=== PATIENT | male | born 1945 ===

== ENCOUNTER 2017-02-17 20:28 | Emergency (ER) | payer MEDICARE, OTHER ==
[2017-02-17 21:06] VITALS: BP 155/76; PULSE 71; RESP 16; TEMP 98.3; O2SAT 100
--- NOTE | 2017-02-17 21:46 | ED PDOC ---
Lower Extremity Pain/Injury Time Seen by Provider: 02/17/17 21:11 Chief Complaint (Nursing): Lower Extremity Problem/Injury Chief Complaint (Provider): Right Foot pain History Per: Patient History/Exam Limitations: no limitations Current Symptoms Are (Timing): Still Present Additional Complaint(s): Je Pham, a 71 year old male patient, presents to the ED with right foot pain. The patient states that for the past year he has been having intermittent right foot pain, but over the past 3 days it has worsened. He states that he was initially seen by his PMD Dr. Galvan and was instructed to get a right foot xray, which he did not get. The patient says he has not taken any medicines to relieve the pain. Denies trauma, fever, rash, calf pain. Past Medical History Reviewed: Historical Data, Nursing Documentation, Vital Signs Vital Signs: Last Vital Signs Temp 98.3 F 02/17/17 21:03 Pulse 71 02/17/17 21:03 Resp 16 02/17/17 21:03 BP 155/76 H 02/17/17 21:03 Pulse Ox 100 02/17/17 21:03 - Medical History PMH: HTN Other PMH: ulcers - Surgical History Surgical History: No Surg Hx - Family History Family History: States: No Known Family Hx - Home Medications Home Medications: Ambulatory Orders Medication Instructions Recorded Cephalexin [cephalexin] 500 mg PO BID #14 cap 09/02/16 Meloxicam [Mobic] 7.5 mg PO DAILY PRN #30 tab 02/17/17 - Allergies Allergies/Adverse Reactions: Allergies Allergy/AdvReac Type Severity Reaction Status Date / Time No Known Allergies Allergy Verified 09/02/16 19:10 Review of Systems Constitutional: Negative for: Fever Musculoskeletal: Positive for: Foot Pain (Right foot pain) Skin: Negative for: Rash Physical Exam - Reviewed Nursing Documentation Reviewed: Yes Vital Signs Reviewed: Yes - Physical Exam Appears: Positive for: Well, Non-toxic, No Acute Distress Head Exam: Positive for: ATRAUMATIC, NORMAL INSPECTION, NORMOCEPHALIC Skin: Positive for: Normal Color, Warm. Negative for: Rash Pulses-Dorsalis Pedis (R): 2+ Back: Positive for: Normal Inspection. Negative for: L CVA Tenderness, R CVA Tenderness Extremity: Positive for: Normal ROM (of RLE), Capillary Refill (Capillary refills less than 2 seconds.), Other (R foot: tenderness, swelling, deformity, warmth, erythema or lesions; no skin integrity; no break in the skin). Negative for: Tenderness, Calf Tenderness (b/l), Deformity, Swelling Neurologic/Psych: Positive for: Alert, Oriented - ECG O2 Sat by Pulse Oximetry: 100 (RA) Pulse Ox Interpretation: Normal - Radiology X-Ray: Interpreted by Me (R foot x-ray) X-Ray Interpretation: Other (heel spur noted) Medical Decision Making Medical Decision Makin:11 Initial Impression: 71 year old male presenting with right foot pain. Initial Plan: * Toradol 15mg IM * RAD Right foot Scribe Attestation Documented by Nadia Alonzo acting as a scribe for Flavio Arredondo PA-C. Provider Attestation All medical record entries made by the Scribe were at my direction and personally dictated by me. I have reviewed the chart and agree that the record accurately reflects my personal performance of the history, physical exam, medical decision making, and the department course for this patient. I have also personally directed, reviewed, and agree with the discharge instructions and disposition. Disposition - Clinical Impression Clinical Impression: Heel spur - Patient ED Disposition Is Patient to be Admitted: No - Disposition Referrals: Bettina Rodriguez DPM [Staff Provider] - [facility]iatry Clinic [Outside] Disposition: Routine/Home Disposition Time: 22:04 Condition: STABLE Prescriptions: Meloxicam [Mobic] 7.5 mg PO DAILY PRN #30 tab PRN Reason: Pain, Mild (1-3) Instructions: Heel Spur (ED) Print Language: HUNGARIAN
--- NOTE | 2017-02-18 13:56 | RAD ---
PROCEDURE: Right foot dated 02/17/2017 Three standard views right foot performed. HISTORY: heel pain COMPARISON: None. FINDINGS: BONES: No evidence of acute displaced fracture nor dislocation. The osseous structures appear intact. On. Note made of what appears represent fused accessory "Extra Navicular" JOINTS: Mild hallux valgus deformity with slight prominence of the head of the 1st metatarsal and minimal DJD 1st MTP joint. . There is also mild prominence of the overlying medial soft tissues. Small plantar and posterior calcaneal enthesophytes are present. SOFT TISSUES: As above OTHER FINDINGS: None. IMPRESSION: No acute fractures. 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 See above discussion for additional findings and details.
== END 2017-02-17 22:22 | disposition home or self-care (01) ==
LOC: H.ER 20:28
DX: M79.671 Pain in right foot (principal); I10 Essential (primary) hypertension
CPT/HCPCS: 73630; 96372; 99283; J1885

== ENCOUNTER 2017-05-19 15:54 | Emergency (ER) | payer OTHER, MEDICARE ==
[2017-05-19 16:06] VITALS: BP 146/64; PULSE 84; RESP 18; TEMP 97.6; O2SAT 99
--- NOTE | 2017-05-19 16:40 | ED PDOC ---
Upper Extremity Pain/Injury Time Seen by Provider: 05/19/17 16:07 Chief Complaint (Nursing): Finger,Hand,&Wrist Chief Complaint (Provider): Numbness and tingling to left finger History Per: Patient History/Exam Limitations: no limitations Onset/Duration Of Symptoms: Days (x 8 months) Current Symptoms Are (Timing): Still Present Additional Complaint(s): Je is a 72 y/o male who presents to the ED for complaints of numbness and tingling to the left ring finger and partial middle finger. States he had a cut there on 09/02/16 which he sustained at work. Symptoms have been presents since then. Patient was told to return if symptoms persisted, which prompted todays visit. PMD: Héctor Sewell Past Medical History Reviewed: Historical Data, Nursing Documentation, Vital Signs Vital Signs: Last Vital Signs Temp 97.6 F 05/19/17 16:03 Pulse 84 05/19/17 16:03 Resp 18 05/19/17 16:03 BP 146/64 05/19/17 16:03 Pulse Ox 99 05/19/17 16:03 - Medical History PMH: HTN - Surgical History Surgical History: No Surg Hx - Family History Family History: States: Unknown Family Hx - Social History Current smoker - smoking cessation education provided: No Alcohol: None Drugs: Denies - Home Medications Home Medications: Ambulatory Orders Medication Instructions Recorded Cephalexin [cephalexin] 500 mg PO BID #14 cap 09/02/16 Meloxicam [Mobic] 7.5 mg PO DAILY PRN #30 tab 02/17/17 - Allergies Allergies/Adverse Reactions: Allergies Allergy/AdvReac Type Severity Reaction Status Date / Time No Known Allergies Allergy Verified 09/02/16 19:10 Review of Systems ROS Statement: Except As Marked, All Systems Reviewed And Found Negative Neurological: Positive for: Numbness (and Tingling, to the left ring finger and partially to middle finger) Physical Exam - Reviewed Nursing Documentation Reviewed: Yes Vital Signs Reviewed: Yes - Physical Exam Appears: Positive for: Well, Non-toxic, No Acute Distress Head Exam: Positive for: ATRAUMATIC, NORMAL INSPECTION, NORMOCEPHALIC Skin: Positive for: Normal Color, Warm, Dry Eye Exam: Positive for: EOMI, Normal appearance, PERRL ENT: Positive for: Normal ENT Inspection Neck: Positive for: Normal Extremity: Positive for: Capillary Refill (< 2 sec), Other (Healed incision at the left lower wrist. Sensation intact. Press Bucker strength normal.) Neurologic/Psych: Positive for: Alert, Oriented. Negative for: Motor/Sensory Deficits - ECG O2 Sat by Pulse Oximetry: 99 (RA) Pulse Ox Interpretation: Normal Medical Decision Making Medical Decision Making: Time: 16:07 --Patient requesting X-Ray. Discussed that he needs an MRI and not an X-Ray. --Advised patient to follow up with Orthopedics or PMD for MRI Time: 16:26 Clinical Impression: Paresthesia Upon provider evaluation patient is medically stable, and requires no further treatment in the ED at this time. Patient will be discharged home. Counseling was provided and all questions were answered regarding diagnosis and need for follow up with Orthopedist or PMD. There is agreement to discharge plan. Return if symptoms persist or worsen. Scribe Attestation: Documented by Mary Kate Tapia, acting as a scribe for Jaimie Stein PA-C Provider Scribe Attestation: All medical record entries made by the Scribe were at my direction and personally dictated by me. I have reviewed the chart and agree that the record accurately reflects my personal performance of the history, physical exam, medical decision making, and the department course for this patient. I have also personally directed, reviewed, and agree with the discharge instructions and disposition. Disposition - Clinical Impression Clinical Impression: Paresthesia - Patient ED Disposition Is Patient to be Admitted: No Counseled Patient/Family Regarding: Diagnosis, Need For Followup - Disposition Referrals: Ilya Rizo III, MD [Staff Provider] - Disposition Time: 16:26 Condition: STABLE Instructions: Paresthesia (ED)
== END 2017-05-19 16:30 | disposition home or self-care (01) ==
LOC: H.ER 15:54
DX: R20.9 Unspecified disturbances of skin sensation (principal)

== ENCOUNTER 2018-01-28 17:01 | Emergency (ER) | payer MEDICARE, OTHER ==
[2018-01-28 17:40] VITALS: BP 157/70; PULSE 85; RESP 18; TEMP 98; O2SAT 99
--- NOTE | 2018-01-28 21:19 | ED PDOC ---
HPI: Back Time Seen by Provider: 01/28/18 18:30 Chief Complaint (Nursing): Back Pain Chief Complaint (Provider): Right flank pain x weeks History Per: Patient History/Exam Limitations: no limitations Onset/Duration Of Symptoms: Days Current Symptoms Are (Timing): Still Present Additional Complaint(s): 72 yo male presents with right rib pain after an injury a few months ago. PT states the last 2 days since his allergies have been acting up and been sneezing the pain is worse Past Medical History Vital Signs: Last Vital Signs Temp 98.0 F 01/28/18 17:37 Pulse 85 01/28/18 17:37 Resp 18 01/28/18 17:37 BP 157/70 H 01/28/18 17:37 Pulse Ox 99 01/28/18 17:37 - Medical History PMH: HTN - Family History Family History: States: Unknown Family Hx - Home Medications Home Medications: Ambulatory Orders Medication Instructions Recorded Cephalexin [cephalexin] 500 mg PO BID #14 cap 09/02/16 Meloxicam [Mobic] 7.5 mg PO DAILY PRN #30 tab 02/17/17 traMADol [Ultram] 50 mg PO Q6H PRN #10 tab 01/28/18 - Allergies Allergies/Adverse Reactions: Allergies Allergy/AdvReac Type Severity Reaction Status Date / Time No Known Allergies Allergy Verified 09/02/16 19:10 - ECG O2 Sat by Pulse Oximetry: 99 Disposition - Clinical Impression Clinical Impression: Rib contusion - Patient ED Disposition Is Patient to be Admitted: No Counseled Patient/Family Regarding: Diagnosis, Need For Followup, Rx Given - Disposition Disposition: Routine/Home Disposition Time: 21:18 Condition: STABLE Prescriptions: traMADol [Ultram] 50 mg PO Q6H PRN #10 tab PRN Reason: Pain Instructions: Contusion (DC)
--- NOTE | 2018-01-29 08:51 | RAD ---
PROCEDURE: Radiographs of the Chest and Right Ribs. HISTORY: right rib pain s/p fall COMPARISON: Chest radiograph dated 05/03/2014. TECHNIQUE: Frontal radiograph of the chest and multiple oblique radiographs of the right ribs were obtained. FINDINGS: RIGHT RIBS: No fracture or focal lesion visualized. LUNGS: Clear. PLEURA: No pneumothorax or pleural fluid. CARDIOVASCULAR: Atherosclerotic aortic calcifications. Cardiomediastinal silhouette within normal limits. OTHER FINDINGS: Remainder of osseous structures unchanged. IMPRESSION: Unremarkable radiographs of the chest and right ribs. No right rib fracture.
== END 2018-01-28 21:26 | disposition home or self-care (01) ==
LOC: H.ER 17:01
DX: S20.219A Contusion of unspecified front wall of thorax, initial encounter (principal); Y92.89 Other specified places as the place of occurrence of the external cause; I10 Essential (primary) hypertension

== ENCOUNTER 2018-11-10 15:29 | Inpatient (IN) | payer MEDICARE ==
--- NOTE | 2018-11-10 16:27 | ED PDOC ---
HPI: Chest Pain History Per: Patient Additional Complaint(s): Pt is a 73 y/o male with hx of HTN presents to ED with acute chest pain. Pt states he went to see his PMD this morning and was told his heart was enlarged and he was started on new medication. 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 He localizes chest pain to substernal, pressure like, non radiating, 8/10 in intensity, that slightly improved with rest. While he was in the ED waiting room, he also experienced nausea and vomiting. He reports that this morning when he woke up, he experienced a similar pain this morning when he woke up for a few minutes. He denies lightheadedness, palpitations, abdominal pain, LE edema, orthopnea, cough, fever/chill PMD: Dr. Alex Mehta PMHX: HTN. Denies hx of Cardiac disease, States he had stress test many years ago SurgHx: Denies NKDA Social: Denies every smoking, alcohol, or illicit drug use Daughter: Roxi Pham <Karina Seth - Last Filed: 11/10/18 19:39> <Saw Maldonado - Last Filed: 11/15/18 14:22> Time Seen by Provider: 11/10/18 15:53 Chief Complaint (Nursing): Chest Pain Supervising Attending Note - Supervising Attending Note The Documented history was done by the: Physician Petrographer The documented physical exam was done by the: Physician Petrographer The documented procedures were done by the: Physician Petrographer - Attestation: I have personally seen and examined this patient.: Yes I have fully participated in the care of the patient.: Yes I have reviewed all pertinent clinical information: Yes <Saw Maldonado Y - Last Filed: 11/15/18 14:22> Past Medical History Reviewed: Historical Data, Nursing Documentation, Vital Signs Vital Signs: Last Vital Signs Temp 98.4 F 11/10/18 15:45 Pulse 84 11/10/18 15:45 Resp 18 11/10/18 15:45 BP 157/81 H 11/10/18 15:45 Pulse Ox 96 11/10/18 15:45 - Medical History PMH: HTN - Surgical History Surgical History: No Surg Hx - Family History Family History: States: Unknown Family Hx - Living Arrangements Living Arrangements: With Family - Social History Current smoker - smoking cessation education provided: No <Karina Seth - Last Filed: 11/10/18 19:39> Vital Signs: Last Vital Signs Temp 98.4 F 11/10/18 15:45 Pulse 84 11/10/18 15:45 Resp 18 11/10/18 15:45 BP 157/81 H 11/10/18 15:45 Pulse Ox 96 11/10/18 17:30 <Saw Maldonado - Last Filed: 11/15/18 14:22> - Home Medications Home Medications: Ambulatory Orders Medication Instructions Recorded RX: Ergocalciferol (Vitamin D2) 50,000 unit PO TH 11/10/18 [Vitamin D2] RX: Icosapent Ethyl [Vascepa] 2 gm PO BID 11/10/18 RX: Levothyroxine [Synthroid] 150 mcg PO DAILY 11/10/18 RX: Losartan/Hydrochlorothiazide 1 tab PO DAILY 11/10/18 [Hyzaar 100-12.5 Tablet] RX: Rosuvastatin Calcium [Crestor] 20 mg PO HS 11/10/18 RX: Sitagliptin Phos/Metformin HCl 1 tab PO BID 11/10/18 [Janumet 50-1,000 mg Tablet] - Allergies Allergies/Adverse Reactions: Allergies Allergy/AdvReac Type Severity Reaction Status Date / Time No Known Allergies Allergy Verified 09/02/16 19:10 Wells Criteria for PE - Wells Criteria for Pulmonary Embolism Clinical Signs and Symptoms of DVT: No P.E is #1 Diagnosis, or Equally Likely: No Heart Rate >100: No Immobilization at least 3 days;Surgery previous 4 weeks: No Previous, objectively diagnosed PE or DVT: No Hemoptysis: No Malignancy w/treatment within 6 months, or palliative: No Total Score: 0 <Karina Seth - Last Filed: 11/10/18 19:39> Review of Systems Constitutional: Negative for: Fever, Chills Cardiovascular: Positive for: Chest Pain. Negative for: Palpitations, Orthopnea Respiratory: Negative for: Cough, Shortness of Breath Gastrointestinal: Positive for: Nausea, Vomiting. Negative for: Abdominal Pain Genitourinary Male: Negative for: Dysuria Neurological: Negative for: Weakness, Numbness <Karina Seth - Last Filed: 11/10/18 19:39> Physical Exam - Physical Exam Appears: Positive for: No Acute Distress Skin: Positive for: Normal Color. Negative for: Diaphoresis, Pallor Eye Exam: Positive for: Normal appearance Neck: Positive for: Normal Cardiovascular/Chest: Positive for: Regular Rate, Rhythm, Chest Non Tender. Negative for: JVD Respiratory: Positive for: Normal Breath Sounds. Negative for: Accessory Muscle Use, Crackles, Wheezing Gastrointestinal/Abdominal: Positive for: Normal Exam, Bowel Sounds, Soft. Negative for: Tenderness, Distended Extremity: Negative for: Pedal Edema Neurologic/Psych: Positive for: Oriented <Karina Seth - Last Filed: 11/10/18 19:39> - Laboratory Results Result Diagrams: 11/10/18 16:56 11/10/18 16:56 - ECG O2 Sat by Pulse Oximetry: 96 <Karina Seth - Last Filed: 11/10/18 19:39> - Laboratory Results Result Diagrams: 11/11/18 04:30 11/11/18 04:30 Lab Results: Troponin I < 0.0120 ng/mL (0.00-0.120) 11/10/18 16:56 NT-Pro-B Natriuret Pep 129 pg/ml (0-900) 11/10/18 16:56 Total Bilirubin 0.6 mg/dl (0.2-1.3) 11/10/18 16:56 AST 26 U/L (17-59) 11/10/18 16:56 ALT 35 U/L (21-72) 11/10/18 16:56 Alkaline Phosphatase 52 U/L (38-126) 11/10/18 16:56 Total Protein 8.3 G/DL (6.3-8.2) H 11/10/18 16:56 Albumin 4.7 g/dL (3.5-5.0) 11/10/18 16:56 Globulin 3.6 gm/dL (2.2-3.9) 11/10/18 16:56 Albumin/Globulin Ratio 1.3 (1.0-2.1) 11/10/18 16:56 <Saw Maldonado Y - Last Filed: 11/15/18 14:22> Medical Decision Making Medical Decision Makin73 y/o male with hx of HTN presenting with acute chest pain (typical) and vomiting. -ASA 325, Nitroglycerin SL -Zofran -CBC, CMP, Troponin, Probnp, Lipase -Chest portable -Abdomen CT w/o contrast 1400 Pt reassessed after receiving medication, states pain and vomiting has resolved. 1545 Labs: Leukocytosis 11.8, Troponin <0.012, <Karina Seth - Last Filed: 11/10/18 19:39> Medical Decision Makin:45 Patient had chest pain which resolved. Will workup to r/o ACS and will be admitted to Dr. Harris who is covering for Dr. Mehta. Patient is in no acute distress currently. <Saw Maldonado - Last Filed: 11/15/18 14:22> Disposition - Disposition Disposition Time: 19:39 <Karina Seth - Last Filed: 11/10/18 19:39> <Saw Maldonado - Last Filed: 11/15/18 14:22> - Clinical Impression Clinical Impression: Chest pain - Disposition Condition: FAIR
--- NOTE | 2018-11-10 16:49 | RAD ---
Date of service: 11/10/2018 HISTORY: Chest pain COMPARISON: 01/28/2018. FINDINGS: LUNGS: The lungs are clear. PLEURA: No pleural effusions or pneumothorax. CARDIOVASCULAR: The heart is normal in size. No aortic atherosclerotic calcifications present. OSSEOUS STRUCTURES: Within normal limits for the patient's age. VISUALIZED UPPER ABDOMEN: Normal. OTHER FINDINGS: There is chronic elevation of the right hemidiaphragm. IMPRESSION: No active pulmonary disease.
[2018-11-10 17:19] LABS: BASO # 0.1 K/uL (0.0-0.2); BASO % 0.5 % (0.0-2.0); EOS % 0.2 % (0.0-4.0); HEMOGLOBIN 13.2 g/dL (12.0-18.0); LYMPH # 1.3 K/uL (1.0-4.3); LYMPH % 10.8 % (20.0-40.0); MEAN CELL VOLUME 92.9 fl (80.0-94.0); MEAN CORPUSCULAR HEMOGLOBIN 30.7 pg (27.0-31.0); MEAN CORPUSCULAR HGB CONC 33.1 g/dL (33.0-37.0); MEAN PLATELET VOLUME 9.6 fl (7.2-11.7); MONO # 1.2 K/uL (0.0-0.8); MONO % 10.5 % (0.0-10.0); NEUT # 9.2 K/uL (1.8-7.0); RBC 4.29 Mil/uL (4.40-5.90); RED CELL DISTRIBUTION WIDTH 13.4 % (11.5-14.5); WHITE BLOOD COUNT 11.8 K/uL (4.8-10.8)
[2018-11-10 17:27] LABS: ALB/GLOB RATIO 1.3 (1.0-2.1); ALBUMIN 4.7 g/dL (3.5-5.0); ALT/SGPT 35 U/L (21-72); AST/SGOT 26 U/L (17-59); BLOOD UREA NITROGEN 16 mg/dl (9-20); GFR NON-AFRICAN AMERICAN > 60
[2018-11-10 17:40] LABS: B-TYPE NATRIURETIC PEPTIDE 129 pg/ml (0-900)
[2018-11-10] MEDS ORDERED: Sodium Chloride 0.9% 50 ML IV ONE (18:17)
[2018-11-10] MEDS ORDERED: Iohexol 300 100 ML IJ ONE (18:17)
[2018-11-11] MEDS: Levothyroxine 150 MCG TAB PO SCH (05:47)
[2018-11-11 05:49] LABS: HEMOGLOBIN 12.3 g/dL (12.0-18.0); MEAN CELL VOLUME 91.8 fl (80.0-94.0); MEAN CORPUSCULAR HEMOGLOBIN 30.9 pg (27.0-31.0); MEAN CORPUSCULAR HGB CONC 33.7 g/dL (33.0-37.0); RBC 3.97 Mil/uL (4.40-5.90); RED CELL DISTRIBUTION WIDTH 13.3 % (11.5-14.5)
[2018-11-11 06:00] LABS: ALB/GLOB RATIO 1.3 (1.0-2.1); ALBUMIN 4.1 g/dL (3.5-5.0); ALT/SGPT 30 U/L (21-72); AST/SGOT 21 U/L (17-59); BLOOD UREA NITROGEN 18 mg/dl (9-20); CALCIUM 9.5 mg/dL (8.4-10.2); GFR NON-AFRICAN AMERICAN > 60; HDL CHOLESTEROL 45 MG/DL (30-70)
[2018-11-11 06:11] LABS: LDL CHOLESTEROL 57 mg/dL (0-129)
[2018-11-11 06:23] VITALS: BMI 31.8
--- NOTE | 2018-11-11 10:12 | CT ---
Date of service: 11/10/2018 PROCEDURE: CT Abdomen and Pelvis with contrast HISTORY: vomiting rule out obstruction COMPARISON: None. TECHNIQUE: Contrast dose: 95 mL Omnipaque 300. Radiation dose: Total exam DLP = 862.83 mGy-cm. This CT exam was performed using one or more of the following dose reduction techniques: Automated exposure control, adjustment of the mA and/or kV according to patient size, and/or use of iterative reconstruction technique. FINDINGS: LOWER THORAX: Circumferential mural thickening of the distal esophagus. Esophagus versus neoplasm. Consider correlation with endoscopy. LIVER: Normal size, contour and attenuation. GALLBLADDER AND BILE DUCTS: Unremarkable. PANCREAS: Unremarkable. No gross lesion or ductal dilatation. SPLEEN: Unremarkable. ADRENALS: Unremarkable. No mass. KIDNEYS AND URETERS: Left parapelvic renal cyst, 3.3 cm in diameter. This measures 11 Hounsfield units in attenuation. There is a 5 mm left lower pole nonobstructing calculus. There is a 7 mm nonobstructing right upper pole renal calculus. No hydronephrosis. VASCULATURE: Unremarkable. No aortic aneurysm. There is atherosclerotic calcification of the abdominal aorta and iliac vessels. BOWEL: Unremarkable. No obstruction. No gross mural thickening. APPENDIX: Normal appendix. PERITONEUM: No ascites. No pneumoperitoneum. No inguinal hernia. 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 LYMPH NODES: Unremarkable. No enlarged lymph nodes. BLADDER: Unremarkable. REPRODUCTIVE: Mild prostate enlargement BONES: No acute fracture. OTHER FINDINGS: None. IMPRESSION: Discordance no evidence of bowel obstruction. No acute abnormality. Bilateral nonobstructing renal calculi. Left parapelvic renal cyst. 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 Circumferential mural thickening of the distal thoracic esophagus. Esophagitis versus neoplasm. Consider correlation with endoscopy. No other significant abnormality. The preliminary findings for this examination were reported by [facility] at 7:26 p.m. on 11/10/2018. There is concurrence of this report with the preliminary findings. Bilateral renal calculi were not described in the preliminary report of this examination. Mural thickening of the distal thoracic esophagus was not described in the preliminary report of this examination.
--- NOTE | 2018-11-11 10:18 | CARD ---
APPROVED REPORT Date of service: 11/10/2018 EKG Measurement Heart [id number] <Conclusion> Normal sinus rhythm with sinus arrhythmia Minimal voltage criteria for LVH, may be normal variant Nonspecific T wave abnormality Abnormal ECG
[2018-11-11] MEDS: Enoxaparin 40 mg Syringe SC SCH (10:34)
--- NOTE | 2018-11-11 11:34 | CP.PCM.CON ---
History of Present Illness - History of Present Illness History of Present Illness: This 73-year-old man diabetic with a long history of hypertension developed chest discomfort after visiting his physician's office when he was told that he had a markedly elevated blood pressure. Deep inspiration aggravated this discomfort. There was no radiation up into the jaw or into his arms. There was no perspiration. Patient is not a smoker and has never suffered a myocardial infarction or congestive cardiac failure. He is able to walk approximately 8 blocks without developing any chest discomfort but often describes claudication on walking 2-3 blocks. There is a history of vascular disease in that his father suffered myocardial infarction. Physical examination shows an anxious middle-aged man alert awake coherent and afebrile. Able to lie virtually flat in bed and breathe comfortably at 16 breaths/min and carry on a conversation. His jugular venous pressure was not elevated and there was no edema over his lower extremities. The pedal pulses were not palpable. His heart rate was 70 bpm regular and his blood pressure was 146/82 mmHg. The apex was not palpable. The first and second heart sounds were normal. There was a very brief ejection systolic murmur in the aortic area. The second heart sound was well preserved. There were no rales and there was no gallop. His electrocardiogram showed sinus rhythm with a pattern of left ventricular hypertrophy but no evidence of ischemic ST-T changes. 3 sets of cardiac enzymes were negative for any evidence of myocyte injury. Impression : Atypical chest pain in a patient with hypertension and diabetes mellitus. History of claudication. An electrocardiogram in the emergency room with no ST-T changes of myocardial ischemia and 3 sets of cardiac enzymes which are within normal limits strongly suggest that this does not represent acute coronary syndrome. The patient may be allowed to return home to be managed as an outpatient. I have warned him that the symptom of claudication strongly suggests presence of vascular disease and he should certainly undergo workup to rule out evidence of coronary artery disease. His primary care physician has already referred him to see a product assembler. Past Patient History - Past Medical History & Family History Past Medical History?: Yes - Past Social History Smoking Status: Never Smoked - CARDIAC Hx Hypertension: Yes - MUSCULOSKELETAL/RHEUMATOLOGICAL Hx Falls: No - PSYCHIATRIC Hx Substance Use: No - SURGICAL HISTORY Hx Surgeries: No - ANESTHESIA Hx Anesthesia: No Meds Allergies/Adverse Reactions: Allergies Allergy/AdvReac Type Severity Reaction Status Date / Time No Known Allergies Allergy Verified 09/02/16 19:10 - Medications Medications: Current Medications Atorvastatin Calcium (Lipitor) 40 mg PO [facility] Enoxaparin Sodium (Lovenox) 40 mg SC DAILY [facility]; Protocol Last Admin: 11/11/18 10:34 Dose: 40 mg Hydrochlorothiazide (Microzide) 12.5 mg PO DAILY [facility] Last Admin: 11/11/18 09:28 Dose: 12.5 mg Levothyroxine Sodium (Synthroid) 150 mcg PO DAILY@0630 [facility] Last Admin: 11/11/18 05:47 Dose: 150 mcg Losartan Potassium (Cozaar) 100 mg PO DAILY [facility] Last Admin: 11/11/18 09:26 Dose: 100 mg Metformin HCl (Glucophage) 1,000 mg PO BIDWM [facility] Last Admin: 11/11/18 09:27 Dose: 1,000 mg Sitagliptin Phosphate (Januvia) 100 mg PO DAILY [facility] Last Admin: 11/11/18 09:27 Dose: 100 mg Results - Vital Signs Recent Vital Signs: Last Vital Signs Temp 98.7 F 11/11/18 09:00 Pulse 65 11/11/18 09:26 Resp 18 11/11/18 09:00 BP 118/76 11/11/18 09:26 Pulse Ox 94 L 11/11/18 09:00 - Labs Result Diagrams: 11/11/18 04:30 11/11/18 04:30 Labs: Laboratory Results - last 24 hr 11/10/18 11/10/18 11/10/18 16:56 16:56 18:00 WBC 11.8 H RBC 4.29 L Hgb 13.2 Hct 39.9 MCV 92.9 MCH 30.7 MCHC 33.1 RDW 13.4 Plt Count 167 MPV 9.6 Neut % (Auto) 78.0 H Lymph % (Auto) 10.8 L [place] % (Auto) 10.5 H Eos % (Auto) 0.2 Baso % (Auto) 0.5 Neut # (Auto) 9.2 H Lymph # (Auto) 1.3 [place] # (Auto) 1.2 H Eos # (Auto) 0.0 Baso # (Auto) 0.1 Sodium 137 Potassium 4.4 Chloride 95 L Carbon Dioxide 26 Anion Gap 20 BUN 16 Creatinine 0.9 Est GFR ( Amer) > 60 Est GFR (Non-Af Amer) > 60 POC Glucose (mg/dL) Random Glucose 160 H Calcium 10.0 Total Bilirubin 0.6 AST 26 ALT 35 Alkaline Phosphatase 52 Troponin I < 0.0120 NT-Pro-B Natriuret Pep 129 Total Protein 8.3 H Albumin 4.7 Globulin 3.6 Albumin/Globulin Ratio 1.3 Triglycerides Cholesterol LDL Cholesterol Direct HDL Cholesterol Lipase 51 TSH 3rd Generation 11/10/18 11/10/18 11/11/18 20:33 22:45 00:15 WBC RBC Hgb Hct MCV MCH MCHC RDW Plt Count MPV Neut % (Auto) Lymph % (Auto) [place] % (Auto) Eos % (Auto) Baso % (Auto) Neut # (Auto) Lymph # (Auto) [place] # (Auto) Eos # (Auto) Baso # (Auto) Sodium Potassium Chloride Carbon Dioxide Anion Gap BUN Creatinine Est GFR ( Amer) Est GFR (Non-Af Amer) POC Glucose (mg/dL) 182 H 196 H Random Glucose Calcium Total Bilirubin AST ALT Alkaline Phosphatase Troponin I < 0.0120 NT-Pro-B Natriuret Pep Total Protein Albumin Globulin Albumin/Globulin Ratio Triglycerides Cholesterol LDL Cholesterol Direct HDL Cholesterol Lipase TSH 3rd Generation 11/11/18 11/11/18 11/11/18 04:30 04:30 05:23 WBC 12.0 H RBC 3.97 L Hgb 12.3 Hct 36.5 MCV 91.8 MCH 30.9 MCHC 33.7 RDW 13.3 Plt Count 164 MPV Neut % (Auto) Lymph % (Auto) [place] % (Auto) Eos % (Auto) Baso % (Auto) Neut # (Auto) Lymph # (Auto) [place] # (Auto) Eos # (Auto) Baso # (Auto) Sodium 137 Potassium 4.0 Chloride 95 L Carbon Dioxide 27 Anion Gap 19 BUN 18 Creatinine 0.9 Est GFR ( Amer) > 60 Est GFR (Non-Af Amer) > 60 POC Glucose (mg/dL) 147 H Random Glucose 152 H Calcium 9.5 Total Bilirubin 0.7 AST 21 ALT 30 Alkaline Phosphatase 42 Troponin I < 0.0120 NT-Pro-B Natriuret Pep Total Protein 7.3 Albumin 4.1 Globulin 3.2 Albumin/Globulin Ratio 1.3 Triglycerides 54 Cholesterol 118 LDL Cholesterol Direct 57 HDL Cholesterol 45 Lipase TSH 3rd Generation 0.71
--- NOTE | 2018-11-11 11:49 | CP.PCM.PCO ---
Assessment & Plan - Assessment and Plan (Free Text) Assessment: pt. sitting up in bed with daughter at bedside, reports intermittent cp described as pressure w/o radiation, sob, dizziness troponin neg x [address] abd official report by noted; reports circumferential mural thickening of distal espghagus; esophagitis vs malignancy above finding d/w ; Spoke with who recommended to monitor patient and will f/u pt. in am and is for endoscopy on Wednesday Cardiology consult w/ ;case d/w ppi protonix 40 mg po bid started D/w patient's PMD outpatient who recommends endoscopy
--- NOTE | 2018-11-11 15:25 | CARD ---
APPROVED REPORT Date of service: 11/11/2018 EXAM: Two-dimensional and M-mode echocardiogram with Doppler and color Doppler. Other Information Quality : GoodRhythm : NSR INDICATION Chest Pain 2D DIMENSIONS IVSd1.75 (0.7-1.1cm)LVDd3.35 (3.9-5.9cm) LVOT Diameter2.09 (1.8-2.4cm)PWd1.35 (0.7-1.1cm) IVSs1.55 (0.8-1.2cm)LVDs3.08 (2.5-4.0cm) FS (%) 8.1 %PWs1.18 (0.8-1.2cm) M-Mode DIMENSIONS Left Atrium (MM)4.38 (2.5-4.0cm)IVSd1.41 (0.7-1.1cm) Aortic Root3.16 (2.2-3.7cm)LVDd4.25 (4.0-5.6cm) Aortic Cusp Exc.2.00 (1.5-2.0cm)PWd1.59 (0.7-1.1cm) IVSs2.03 cmFS (%) 38 % LVDs2.66 (2.0-3.8cm)PWs1.56 cm Aortic Valve AoV Peak Qfuhdfdj647.7cm/sAoV VTI32.1cmAO Peak GR.9mmHg LVOT Peak Pvtxlsao47.8cm/sLVOT VTI17.45cmAO Mean GR.5mmHg ROSEMARY (VMAX)1.32xo0YTU (VTI)0.94cm2 Mitral Valve MV E Hcktuqwl21.1cm/sMV DECEL [id number] A Zhwcuirn69.0cm/s MV JSL75yoH/A ratio1.2MVA (PHT)3.90cm2 TDI Lateral E' Peak V10.92cm/sMedial E' Peak V7.74cm/sE/Lateral E'6.3 E/Medial E'8.9 LEFT VENTRICLE The left ventricle is normal size. There is mild concentric left ventricular hypertrophy. The left ventricular systolic function is normal. The estimated ejection fraction is 55-60% No regional wall motion abnormalities noted.. Transmitral Doppler flow pattern is Grade II-pseudonormal filling dynamics. No left ventricle thrombus noted on this study. There is no ventricular septal defect visualized. There is no left ventricular aneurysm. There is no mass noted in the left ventricle. RIGHT VENTRICLE The right ventricle is normal size. There is normal right ventricular wall thickness. The right ventricular systolic function is normal. ATRIA The left atrium is mildly dilated. The right atrium size is normal. The interatrial septum is intact with no evidence for an atrial septal defect. AORTIC VALVE The aortic valve is normal in structure. No aortic regurgitation is present. There is no aortic valvular stenosis. There is no aortic valvular vegetation. MITRAL VALVE The mitral valve is normal in structure. There is no evidence of mitral valve prolapse. There is no mitral valve stenosis. There is no mitral valve regurgitation noted. TRICUSPID VALVE The tricuspid valve is normal in structure. There is trace tricuspid valve regurgitation noted. There is no tricuspid valve prolapse or vegetation. There is no tricuspid valve stenosis. PULMONIC VALVE The pulmonary valve is normal in structure. There is no pulmonic valvular regurgitation. There is no pulmonic valvular stenosis. GREAT VESSELS The aortic root is normal in size. The ascending aorta is normal in size. The pulmonary artery is normal. The IVC is normal in size and collapses >50% with inspiration. PERICARDIAL EFFUSION There is no pericardial effusion. There is no pleural effusion. <Conclusion> There is mild concentric left ventricular hypertrophy. The estimated ejection fraction is 55-60% Transmitral Doppler flow pattern is Grade II-pseudonormal filling dynamics. The left atrium is mildly dilated. There is trace tricuspid valve regurgitation noted. The IVC is normal in size and collapses >50% with inspiration.
[2018-11-11] MEDS: Pantoprazole 40 mg EC Tab PO SCH (17:12)
[2018-11-12] MEDS: Levothyroxine 150 MCG TAB PO SCH (06:04)
[2018-11-12] MEDS: Pantoprazole 40 mg EC Tab PO SCH ×2 (08:36→17:29)
[2018-11-12] MEDS: Enoxaparin 40 mg Syringe SC SCH (08:37)
--- NOTE | 2018-11-12 22:36 | CP.PCM.HP ---
Past Patient History - Past Medical History & Family History Past Medical History?: Yes - Past Social History Smoking Status: Never Smoked - CARDIAC Hx Hypertension: Yes - MUSCULOSKELETAL/RHEUMATOLOGICAL Hx Falls: No - PSYCHIATRIC Hx Substance Use: No - SURGICAL HISTORY Hx Surgeries: No - ANESTHESIA Hx Anesthesia: No Meds Allergies/Adverse Reactions: Allergies Allergy/AdvReac Type Severity Reaction Status Date / Time No Known Allergies Allergy Verified 09/02/16 19:10 Results - Vital Signs Recent Vital Signs: Last Vital Signs Temp 97.6 F 11/12/18 19:24 Pulse 81 11/12/18 19:24 Resp 20 11/12/18 19:24 BP 118/73 11/12/18 19:24 Pulse Ox 97 11/12/18 19:24 - Labs Result Diagrams: 11/11/18 04:30 11/11/18 04:30 Labs: Laboratory Results - last 24 hr 11/12/18 11/12/18 11/12/18 05:51 10:39 16:03 POC Glucose (mg/dL) 126 H 174 H 119 H 11/12/18 22:13 POC Glucose (mg/dL) 102
--- NOTE | 2018-11-12 22:37 | CP.PCM.PN ---
Subjective - Date & Time of Evaluation Date of Evaluation: 11/12/18 Time of Evaluation: 18:35 Objective - Vital Signs/Intake and Output Vital Signs (last 24 hours): Temp Pulse Resp BP Pulse Ox 97.6 F 81 20 118/73 97 11/12/18 19:24 11/12/18 19:24 11/12/18 19:24 11/12/18 19:24 11/12/18 19:24 - Medications Medications: Current Medications Atorvastatin Calcium (Lipitor) 40 mg PO HS [facility] Last Admin: 11/12/18 22:06 Dose: 40 mg Enoxaparin Sodium (Lovenox) 40 mg SC DAILY [facility]; Protocol Last Admin: 11/12/18 08:37 Dose: 40 mg Hydrochlorothiazide (Microzide) 12.5 mg PO DAILY [facility] Last Admin: 11/12/18 08:37 Dose: 12.5 mg Levothyroxine Sodium (Synthroid) 150 mcg PO DAILY@0630 [facility] Last Admin: 11/12/18 06:04 Dose: 150 mcg Losartan Potassium (Cozaar) 100 mg PO DAILY [facility] Last Admin: 11/12/18 08:36 Dose: 100 mg Metformin HCl (Glucophage) 1,000 mg PO BIDWM [facility] Last Admin: 11/12/18 17:29 Dose: 1,000 mg Pantoprazole Sodium (Protonix Ec Tab) 40 mg PO BID [facility] Last Admin: 11/12/18 17:29 Dose: 40 mg Sitagliptin Phosphate (Januvia) 100 mg PO DAILY [facility] Last Admin: 11/12/18 08:36 Dose: 100 mg - Labs Labs: 11/11/18 04:30 11/11/18 04:30
--- NOTE | 2018-11-12 23:41 | CP.PCM.CON ---
History of Present Illness - History of Present Illness History of Present Illness: 73 yo male admitted with atypical chest pain which apparently started after eating spicy foods. Has been seen by cardiology and it was felt this episode does not represent ACS. Currently w/o complaint. No prior upper endoscopy Review of Systems - Constitutional Constitutional: absent: Chills - EENT Eyes: absent: Blurred Vision Ears: absent: Decreased Hearing Nose/Mouth/Throat: absent: Epistaxis - Cardiovascular Cardiovascular: As Per HPI - Respiratory Respiratory: absent: Cough - Gastrointestinal Gastrointestinal: As Per HPI - Genitourinary Genitourinary: absent: Change in Urinary Stream Past Patient History - Past Medical History & Family History Past Medical History?: Yes - Past Social History Smoking Status: Never Smoked - CARDIAC Hx Hypertension: Yes - MUSCULOSKELETAL/RHEUMATOLOGICAL Hx Falls: No - PSYCHIATRIC Hx Substance Use: No - SURGICAL HISTORY Hx Surgeries: No - ANESTHESIA Hx Anesthesia: No Meds Allergies/Adverse Reactions: Allergies Allergy/AdvReac Type Severity Reaction Status Date / Time No Known Allergies Allergy Verified 09/02/16 19:10 - Medications Medications: Current Medications Atorvastatin Calcium (Lipitor) 40 mg PO HS [facility] Last Admin: 11/12/18 22:06 Dose: 40 mg Enoxaparin Sodium (Lovenox) 40 mg SC DAILY [facility]; Protocol Last Admin: 11/12/18 08:37 Dose: 40 mg Hydrochlorothiazide (Microzide) 12.5 mg PO DAILY [facility] Last Admin: 11/12/18 08:37 Dose: 12.5 mg Levothyroxine Sodium (Synthroid) 150 mcg PO DAILY@0630 [facility] Last Admin: 11/12/18 06:04 Dose: 150 mcg Losartan Potassium (Cozaar) 100 mg PO DAILY [facility] Last Admin: 11/12/18 08:36 Dose: 100 mg Metformin HCl (Glucophage) 1,000 mg PO BIDWM [facility] Last Admin: 11/12/18 17:29 Dose: 1,000 mg Pantoprazole Sodium (Protonix Ec Tab) 40 mg PO BID [facility] Last Admin: 11/12/18 17:29 Dose: 40 mg Sitagliptin Phosphate (Januvia) 100 mg PO DAILY [facility] Last Admin: 11/12/18 08:36 Dose: 100 mg Physical Exam - Constitutional Appears: Well - Head Exam Head Exam: ATRAUMATIC - Eye Exam Eye Exam: Normal appearance Pupil Exam: PERRL - ENT Exam ENT Exam: Mucous Membranes Moist - Neck Exam Neck exam: Positive for: Normal Inspection - Respiratory Exam Respiratory Exam: Clear to Auscultation Bilateral, NORMAL BREATHING PATTERN - Cardiovascular Exam Cardiovascular Exam: REGULAR RHYTHM, +S1, +S2 - GI/Abdominal Exam GI & Abdominal Exam: Normal Bowel Sounds, Soft Results - Vital Signs Recent Vital Signs: Last Vital Signs Temp 97.6 F 11/12/18 19:24 Pulse 81 11/12/18 19:24 Resp 20 11/12/18 19:24 BP 118/73 11/12/18 19:24 Pulse Ox 97 11/12/18 19:24 - Labs Result Diagrams: 11/11/18 04:30 11/11/18 04:30 Labs: Laboratory Results - last 24 hr 11/12/18 11/12/18 11/12/18 05:51 10:39 16:03 POC Glucose (mg/dL) 126 H 174 H 119 H 11/12/18 22:13 POC Glucose (mg/dL) 102 - Imaging and Cardiology CT scan - abdomen Status: Image reviewed by me, Report reviewed by me Assessment & Plan (1) Chest pain Assessment and Plan: Atypical chest pain associated with abnormal CT showing mural thickening of thoracic esophagus. EGD Wednesday to evaluate for esophagitis or neoplasm. Continue pantoprazole. Status: Acute
[2018-11-13] MEDS: Levothyroxine 150 MCG TAB PO SCH (06:00)
[2018-11-13] MEDS: Enoxaparin 40 mg Syringe SC SCH (08:34)
[2018-11-13] MEDS: Pantoprazole 40 mg EC Tab PO SCH ×2 (08:34→16:29)
[2018-11-14] MEDS: Levothyroxine 150 MCG TAB PO SCH (06:27)
[2018-11-14] MEDS: Pantoprazole 40 mg EC Tab PO SCH (09:04)
[2018-11-14] MEDS: Enoxaparin 40 mg Syringe SC SCH (09:05)
[2018-11-14 13:08] VITALS: RESP 20
[2018-11-14] MEDS ORDERED: Lactated Ringer's 500 ML IV ONE (13:08)
[2018-11-14] MEDS ORDERED: Propofol 10 mg/ml Inj (20 ML) ONE (13:16)
[2018-11-14] MEDS ORDERED: Midazolam 2 MG/2 ML VIAL ONE (13:16)
[2018-11-14 13:54] VITALS: TEMP 97; O2SAT 97
[2018-11-14 14:07] VITALS: BP 108/58; PULSE 80
--- NOTE | 2018-11-14 19:22 | CP.PCM.PN ---
Subjective - Date & Time of Evaluation Date of Evaluation: 11/13/18 Objective - Vital Signs/Intake and Output Vital Signs (last 24 hours): Temp Pulse Resp BP Pulse Ox 97 F L 80 20 108/58 L 97 11/14/18 13:55 11/14/18 13:55 11/14/18 13:55 11/14/18 13:55 11/14/18 13:55 Intake and Output: 11/14/18 11/15/18 18:59 06:59 Intake Total 110 Balance 110 - Labs Labs: 11/11/18 04:30 11/11/18 04:30
--- NOTE | 2018-11-14 19:23 | CP.PCM.DIS ---
Provider - Provider Date of Admission: 11/11/18 13:51 Attending physician: Fior Harris MD Consults: 11/11/18 10:38 Cardiology Consult Routine Comment: Consulting Provider: Husam Nguyen V Consulting Physician: Husam Nguyen V Reason for Consult: cp, hx htn, dm 11/11/18 11:39 Gastroenterology Consult Routine Comment: Consulting Provider: Nacho Lira Consulting Physician: Nacho Lira Reason for Consult: adm w/ cp, n/v/ CT abd esophagial thickening, neoplasm vs esopagitis Time Spent in preparation of Discharge (in minutes): 25 Diagnosis - Discharge Diagnosis (1) Abnormality of esophagus Status: Acute (2) Chest pain Status: Acute (3) Diabetes mellitus with hyperglycemia Status: Acute (4) Hypertension Status: Acute (5) Dyslipidemia Status: Acute Hospital Course - Lab Results Lab Results: Most Recent Lab Values WBC 12.0 K/uL (4.8-10.8) H 11/11/18 04:30 RBC 3.97 Mil/uL (4.40-5.90) L 11/11/18 04:30 Hgb 12.3 g/dL (12.0-18.0) 11/11/18 04:30 Hct 36.5 % (35.0-51.0) 11/11/18 04:30 MCV 91.8 fl (80.0-94.0) 11/11/18 04:30 MCH 30.9 pg (27.0-31.0) 11/11/18 04:30 MCHC 33.7 g/dL (33.0-37.0) 11/11/18 04:30 RDW 13.3 % (11.5-14.5) 11/11/18 04:30 Plt Count 164 K/uL (130-400) 11/11/18 04:30 MPV 9.6 fl (7.2-11.7) 11/10/18 16:56 Neut % (Auto) 78.0 % (50.0-75.0) H 11/10/18 16:56 Lymph % (Auto) 10.8 % (20.0-40.0) L 11/10/18 16:56 [place] % (Auto) 10.5 % (0.0-10.0) H 11/10/18 16:56 Eos % (Auto) 0.2 % (0.0-4.0) 11/10/18 16:56 Baso % (Auto) 0.5 % (0.0-2.0) 11/10/18 16:56 Neut # (Auto) 9.2 K/uL (1.8-7.0) H 11/10/18 16:56 Lymph # (Auto) 1.3 K/uL (1.0-4.3) 11/10/18 16:56 [place] # (Auto) 1.2 K/uL (0.0-0.8) H 11/10/18 16:56 Eos # (Auto) 0.0 K/uL (0.0-0.7) 11/10/18 16:56 Baso # (Auto) 0.1 K/uL (0.0-0.2) 11/10/18 16:56 Sodium 137 mmol/l (132-148) 11/11/18 04:30 Potassium 4.0 MMOL/L (3.6-5.0) 11/11/18 04:30 Chloride 95 mmol/L (98-107) L 11/11/18 04:30 Carbon Dioxide 27 mmol/L (22-30) 11/11/18 04:30 Anion Gap 19 (10-20) 11/11/18 04:30 BUN 18 mg/dl (9-20) 11/11/18 04:30 Creatinine 0.9 mg/dl (0.8-1.5) 11/11/18 04:30 Est GFR ( Amer) > 60 11/11/18 04:30 Est GFR (Non-Af Amer) > 60 11/11/18 04:30 POC Glucose (mg/dL) 119 mg/dL (65-110) H 11/14/18 10:57 Random Glucose 152 mg/dL (75-110) H 11/11/18 04:30 Hemoglobin A1c 7.5 % (4.2-6.5) H 11/11/18 04:30 Calcium 9.5 mg/dL (8.4-10.2) 11/11/18 04:30 Total Bilirubin 0.7 mg/dl (0.2-1.3) 11/11/18 04:30 AST 21 U/L (17-59) 11/11/18 04:30 ALT 30 U/L (21-72) 11/11/18 04:30 Alkaline Phosphatase 42 U/L (38-126) 11/11/18 04:30 Troponin I < 0.0120 ng/mL (0.00-0.120) 11/11/18 12:45 NT-Pro-B Natriuret Pep 129 pg/ml (0-900) 11/10/18 16:56 Total Protein 7.3 G/DL (6.3-8.2) 11/11/18 04:30 Albumin 4.1 g/dL (3.5-5.0) 11/11/18 04:30 Globulin 3.2 gm/dL (2.2-3.9) 11/11/18 04:30 Albumin/Globulin Ratio 1.3 (1.0-2.1) 11/11/18 04:30 Triglycerides 54 mg/DL (0-149) 11/11/18 04:30 Cholesterol 118 mg/dL (0-199) 11/11/18 04:30 LDL Cholesterol Direct 57 mg/dL (0-129) 11/11/18 04:30 HDL Cholesterol 45 MG/DL (30-70) 11/11/18 04:30 Lipase 51 U/L (23-300) 11/10/18 18:00 TSH 3rd Generation 0.71 mIU/ML (0.46-4.68) 11/11/18 04:30 Discharge Exam - Head Exam Head Exam: ATRAUMATIC Discharge Plan - Follow Up Plan Condition: FAIR Disposition: HOME/ ROUTINE Instructions: Chest Pain (DC) Additional Instructions: follow up with in 1 week Referrals: Nacho Lira MD [Staff Provider] - Fior Harris MD [Staff Provider] -
== END 2018-11-14 16:47 | disposition home or self-care (01) | DRG 392 ==
LOC: H.ER 15:29 → H.ERHOLD 17:59 → H.TEL 21:58 → OBSVTOIN 11-11 13:51
PROVIDERS: ADMIT Internal Medicine; ATTEND Internal Medicine
PROC: 0DJ08ZZ Inspection of Upper Intestinal Tract, Via Natural or Artificial Opening Endoscopic (ICD-10-PCS; principal; 2018-11-14 13:15)
DX: K22.9 Disease of esophagus, unspecified (principal); R07.89 Other chest pain; E11.65 Type 2 diabetes mellitus with hyperglycemia; I10 Essential (primary) hypertension; E78.5 Hyperlipidemia, unspecified; E11.51 Type 2 diabetes mellitus with diabetic peripheral angiopathy without gangrene; K31.89 Other diseases of stomach and duodenum; D72.829 Elevated white blood cell count, unspecified